=== PATIENT | female | born 1990 | race Caucasian/White ===

== ENCOUNTER 2017-06-15 09:42 | Emergency (ER) | payer OTHER ==
[2017-06-15 09:54] VITALS: BP 96/59
--- NOTE | 2017-06-15 10:35 | ED ---
Throat Pain/Nasal Congestion - HPI Summary HPI Summary: 27 yr old female with the complaint of runny nose, itching in the bilateral maxillary sinus area, and mostly clear nasal drainage at times. She has had associated sneezing as well. She denies having sinus pressure, pain, fever. She otherwise does not feel ill. She is breast feeding a 5 month old. - History of Current Complaint Chief Complaint: UCRespiratory Time Seen by Provider: 06/15/17 10:21 - Allergies/Home Medications Allergies/Adverse Reactions: Allergies Allergy/AdvReac Type Severity Reaction Status Date / Time Amoxicillin Allergy Unknown Verified 06/15/17 09:50 Reaction Details Home Medications: Home Medications NK [No Home Medications Reported] 06/15/17 [History Confirmed 06/15/17] PMH/Surg Hx/FS Hx/Imm Hx - Surgical History Surgery Procedure, Year, and Place: Left Metatarsal Avulsion Removed; [place] Teeth Infectious Disease History: No Infectious Disease History: Denies: Traveled Outside the [place] in Last 30 Days - Family History Known Family History: Positive: None - Social History Alcohol Use: Occasionally Substance Use Type: Reports: None Smoking Status (MU): Never Smoked Tobacco Review of Systems Constitutional: Negative Positive: Other - itching in sinuses, and sneezing All Other Systems Reviewed And Are Negative: Yes Physical Exam Triage Information Reviewed: Yes Vital Signs On Initial Exam: Initial Vitals Temp Pulse Resp BP Pulse Ox 98 F 86 18 96/59 100 06/15/17 09:48 06/15/17 09:48 06/15/17 09:48 06/15/17 09:48 06/15/17 09:48 Vital Signs Reviewed: Yes Appearance: Positive: Well-Appearing, No Pain Distress Skin: Positive: Warm, Skin Color Reflects Adequate Perfusion Head/Face: Positive: Normal Head/Face Inspection Eyes: Positive: EOMI ENT: Positive: Pharynx normal, Nasal congestion, TMs normal. Negative: Muffled voice, Hoarse voice, Sinus tenderness Neck: Positive: Nontender Respiratory/Lung Sounds: Positive: Clear to Auscultation, Breath Sounds Present Cardiovascular: Positive: RRR. Negative: Murmur Abdomen Description: Positive: Nontender Musculoskeletal: Positive: Strength/ROM Intact Neurological: Positive: Sensory/Motor Intact, Alert, Oriented to Person Place, Time, CN Intact II-III Psychiatric: Positive: Normal - [place] Coma Scale Best Eye Response: 4 - Spontaneous Best Motor Response: 6 - Obeys Commands Best Verbal Response: 5 - Oriented Diagnostics - Vital Signs Vital Signs Temp Pulse Resp BP Pulse Ox 06/15/17 09:48 98 F 86 18 96/59 100 - Laboratory Lab Statement: Any lab studies that have been ordered have been reviewed, and results considered in the medical decision making process. EENT Course/Dx - Course Course Of Treatment: 27 yr old with itching and nasal congestion. Do not think this is sinusitis. Could be a cold or allergies. DC home. No antbiotics at this time. - Diagnoses Provider Diagnoses: Rhinitis Discharge - Discharge Plan Condition: Good Disposition: HOME Patient Education Materials: Allergic Rhinitis (ED) Referrals: Joe GERBER,Jyothi Thomas [Primary Care Provider] - 2 Days
== END 2017-06-15 10:34 | disposition home or self-care (01) ==
LOC: UCCORT 09:42
DX: J31.0 Chronic rhinitis (principal); Z88.1 Allergy status to other antibiotic agents
CPT/HCPCS: 99201; G0463